=== PATIENT | female | born 1960 | race Caucasian/White ===

== ENCOUNTER 2020-02-26 12:39 | Outpatient (CLI) | payer MEDICAID, SELFPAY ==
--- NOTE | 2020-02-26 12:47 | XR_ITS ---
WS: [id number] LEFT SHOULDER: 2 VIEW(S) TECHNIQUE: Internal and external rotation. HISTORY: chronic left shoulder pain COMPARISON: None available. Mild narrowing of the AC joint. Subchondral cystic changes involving the clavicular and acromial surf aces of the AC joint. No displacement. Glenohumeral joint is normal. Visualized LEFT upper lung is clear. XR/XR shoulder LT min 2V* [id number] IMPRESSION: Mild degenerative changes at the AC joint.
== END 2020-02-26 12:40 | disposition home or self-care (01) ==
LOC: RADWPI 12:42
PROVIDERS: Family Provider Nurse Practitioner; PCP Family Medicine; Visit Provider Family Medicine
DX: M25.512 Pain in left shoulder (principal); G89.29 Other chronic pain; Z13.6 Encounter for screening for cardiovascular disorders; D50.9 Iron deficiency anemia, unspecified; G25.81 Restless legs syndrome; E03.9 Hypothyroidism, unspecified; E55.9 Vitamin D deficiency, unspecified; Z86.39 Personal history of other endocrine, nutritional and metabolic disease
CPT/HCPCS: 73030; 80053; 80061; 82306; 82728; 83550; 84443; 85025

== ENCOUNTER 2020-03-11 08:29 | Day surgery (SDC) | payer MEDICAID, SELFPAY ==
[2020-03-09 11:10] VITALS: BMI 22.8
[2020-03-11 08:38] VITALS: BP 110/71; PULSE 90; RESP 18; TEMP 36.6; O2SAT 100
[2020-03-11] MEDS: sodium chloride 0.9% 1,000 ML 30 ML IV (08:49)
--- NOTE | 2020-03-11 09:03 | W.PM.OPSFHP ---
Same Day Surgery H&P Indication for Procedure/HPI DATE OF PROCEDURE: March 11, 2020 CHIEF COMPLAINT/INDICATIONFOR SURGICAL PROCEDURE: Screening colonoscopy PREOP DIAGNOSIS: Screening colonoscopy PLANNED PROCEDRUE: Operation Date: 03/11/20 09:45 Proposed Procedures p Colonoscopy/54684 Z12.11(Not Applicable) - Thomas Snyder MD This is a pleasant 59 years old female patient well-known to me from previous clinical encounter and she did undergo a colonoscopy before 6 months but the colon prep was suboptimal patient was referred back for repeating colonoscopy for screening purposes, she denies any bleeding per rectum or colon cancer history or weight loss ROS All systems have been reviewed negative except as per the above Medications/Allergies* Home Medications Medication Instructions Recorded Confirmed Type esomeprazole magnesium 20 mg 20 mg PO DAILY PRN 10/02/19 03/11/20 History capsule,delayed release tramadol 50 mg tablet 50 mg PO TID PRN 10/02/19 03/09/20 History ropinirole 2 mg PO BID 03/09/20 03/11/20 History oxybutynin chloride 5 mg PO BEDTIME 03/11/20 03/11/20 History Allergies/Adverse Reactions Allergy/AdvReac Type Severity Reaction Status Date / Time bupropion [From Wellbutrin] Allergy dizziness Verified 03/11/20 09:04 indomethacin [From Indocin] Allergy not sure Verified 03/11/20 09:04 oxycodone [From OxyContin] Allergy ORDER DISPATCHER Verified 03/11/20 09:04 Current Medications: Generic Name Dose Route Start Last Admin Trade Name Freq PRN Reason Stop Dose Admin Sodium Chloride 1,000 mls @ 30 mls/hr 03/11/20 08:15 03/11/20 08:49 Sodium Chloride 0.9% IV 03/12/20 08:14 30 mls/hr .Q24H KARINA Administration Pertinent History/Comorbid Conditions* Medical History (Updated 02/26/20 @ 12:11 by Gaby Watts DO) Arthritis involving multiple sites Carpal tunnel syndrome Fibromyalgia Hypothyroid Raynaud disease Sleep apnea TMJ (temporomandibular joint disorder) Surgical History (Updated 10/02/19 @ 23:17 by CORI Harrison) History of appendectomy History of hysterectomy Status post reverse total arthroplasty of right shoulder Status post tendon repair Family History (Updated 02/05/20 @ 13:47 by Barb Seals LPN) Diabetes Grandfather Social History Smoking and tobacco status: never smoked Pertinent Exam Findings alert, oriented x 3, clear to auscultation bilaterally, regular rate & rhythm and procedure specific exam findings (Abdominal examination nontender nondistended soft) Recommendations Surgery/Procedure today (Screening colonoscopy and informed consent per chart 6, benefits and alternatives all discussed with the patient and she agreed to proceed) Coding Level of Care Code Acute Assistant Media Planner for Fernanda Smith
--- NOTE | 2020-03-11 09:06 | ANES.PREANE2 ---
Pre-Anesthetic Assessment Pre-Anesthetic Assessment: Height/Weight: Height 1.57 m Weight 56.699 kg Temp Pulse Resp BP Pulse Ox 97.8 F 90 18 110/71 100 03/11/20 08:38 03/11/20 08:38 03/11/20 08:38 03/11/20 08:38 03/11/20 08:38 Preop Diagnosis: Screening colonoscopy Proposed Procedure: Operation Date: 03/11/20 09:45 Proposed Procedures p Colonoscopy/99537 Z12.11(Not Applicable) - Thomas Snyder MD Was Beta Luisana taken within 24 hours: N/A Last intake: Intake Last Liquid Date 03/10/20 Last Liquid Time 23:00 Last Solid Date 03/09/20 Last Solid Time 18:00 Social: Social History: No alcohol and No tobacco Exam: Pre-Anes Outpt Exam: alert, oriented x 3, clear to auscultation bilaterally and regular rate & rhythm Airway: Submandibular: WNL Cervical ROM: WNL MP: 1 History/ROS: No significant complaints Pulmonary: Pulmonary: None reported CV/HEM: CV/HEM: None reported : : None reported Hepatic: Hepatic: None reported GI: GI: None reported Metabolic: Metabolic: Thyroid Musc/skel: Musc/skel: None reported Neuropsych: Neuropsych: Depression Anesthetic Plan: ASA status: 2 Anesthesia: MAC Meds/Allergies Current Medications: Current Medications Generic Name Dose Route Start Last Admin Trade Name Freq PRN Reason Stop Dose Admin Sodium Chloride 1,000 mls @ 30 ml s/hr 03/11/20 08:15 03/11/20 08:49 Sodium Chloride 0.9% IV 03/12/20 08:14 30 mls/hr .Q24H KARINA Administration PFSH Anesthesia PFSH: Medical History (Updated 02/26/20 @ 12:11 by Gaby Watts DO) Arthritis involving multiple sites Carpal tunnel syndrome Fibromyalgia Hypothyroid Raynaud disease Sleep apnea TMJ (temporomandibular joint disorder) Surgical History History of appendectomy History of hysterectomy Status post reverse total arthroplasty of right shoulder Status post tendon repair Family History Grandfather Diabetes Social History Smoking and tobacco status: never smoked Female Reproductive History: Para: 1 Data Anesthesia Cardiac Studies: No Data to Display
[2020-03-11 10:04] VITALS: BP 91/54; PULSE 76; RESP 16; TEMP 36.6; O2SAT 100
[2020-03-11 10:20] VITALS: BP 97/60; PULSE 69; RESP 16; TEMP 36.6; O2SAT 100
== END 2020-03-11 10:45 | disposition home or self-care (01) ==
PROVIDERS: PCP Family Medicine; Visit Provider Surgery
PROC: 0DJD8ZZ Inspection of Lower Intestinal Tract, Via Natural or Artificial Opening Endoscopic (ICD-10-PCS; CPT 45378; principal; 2020-03-11 09:45)
DX: Z12.11 Encounter for screening for malignant neoplasm of colon (principal); M19.90 Unspecified osteoarthritis, unspecified site; E03.9 Hypothyroidism, unspecified; G47.30 Sleep apnea, unspecified; Z83.3 Family history of diabetes mellitus
CPT/HCPCS: 12345; 45378; J2704; J7030

== ENCOUNTER 2020-04-16 09:29 | Outpatient (CLI) | payer MEDICAID, SELFPAY ==
--- NOTE | 2020-04-16 10:00 | FL_ITS ---
WS: [id number] BARIUM ENEMA SINGLE CONTRAST. HISTORY: Z12.11 Encounter for screening for malignant neoplasm COMPARISON: None available. FLUOROSCOPY TIME: 2.7 minutes. Good distention of the colon with contrast. Marked tortuosity and overlapping loops of colon. There i s retained fecal material in the more proximal colon. No persistent filling defects. Several of the l oops are overlapping and tortuous but no strictures or mucosal narrowing identified. No significant d iverticular disease. The appendix did not fill consistent with history of appendectomy. FL/FL barium enema [id number] IMPRESSION: 1. No strictures or persistent mass. 2. Markedly tortuous colon with overlapping loops. 3. No evidence for diverticulosis.
== END 2020-04-16 09:30 | disposition home or self-care (01) ==
LOC: RAD 09:31
PROVIDERS: PCP Family Medicine; Visit Provider Surgery
DX: Z12.11 Encounter for screening for malignant neoplasm of colon (principal)
CPT/HCPCS: 74270

== ENCOUNTER 2020-04-29 11:22 | Outpatient (CLI) | payer MEDICAID, SELFPAY ==
--- NOTE | 2020-04-29 11:30 | MM_ITS ---
WS: [id number] SCREENING DIGITAL MAMMOGRAM WITH CAD HISTORY: screening mammogram COMPARISON: 04/02/2019 and 02/26/2018 Bilateral CC and MLO views submitted. Computer aided detection analyzed. Breast composition: There are scattered areas of fibroglandular density. No suspicious masses, microc alcifications or architectural distortion. MM/[place] [id number] IMPRESSION: BI-RADS: 1-Negative FOLLOW UP: 1 Year Follow-up
== END 2020-04-29 11:23 | disposition home or self-care (01) ==
LOC: RADSHAW 11:25
PROVIDERS: PCP Family Medicine; Visit Provider Family Medicine
DX: Z12.31 Encounter for screening mammogram for malignant neoplasm of breast (principal)
CPT/HCPCS: 77067

== ENCOUNTER → 2020-06-05 12:35 | Outpatient (BNVA) | payer MEDICAID, SELFPAY | PROVIDERS: PCP Family Medicine; Visit Provider Surgery | DX: Z11.59 Encounter for screening for other viral diseases (principal) | CPT/HCPCS: 87635 ==

== ENCOUNTER 2020-06-09 08:25 | Day surgery (SDC) | payer MEDICAID, SELFPAY ==
[2020-06-08 16:57] VITALS: BMI 21.9
[2020-06-09] MEDS: sodium chloride 0.9% 1,000 ML 30 ML IV (08:57)
[2020-06-09 09:02] VITALS: BP 115/61; PULSE 101; RESP 18; TEMP 36.6; O2SAT 96
--- NOTE | 2020-06-09 09:02 | P.ANESASSM_ITS ---
Pre-Anesthetic Assessment Pre-Anesthetic Assessment: Height/Weight: Height 1.57 m Weight 54.431 kg Preop Diagnosis: Tender left breast scar Proposed Procedure: Operation Date: 06/09/20 09:55 Proposed Procedures p Excision of left breast scar 38571 L90.5(Left) - Thomas Membreno MD Familial anesthetic complications: PONV Was Beta Luisana taken within 24 hours: N/A Last intake: Intake Last Liquid Date 06/08/20 Last Liquid Time 21:00 Last Solid Date 06/08/20 Last Solid Time 19:00 Social: Social History: No alcohol and No tobacco Exam: Pre-Anes Outpt Exam: alert, oriented x 3, clear to auscultation bilaterally and regular rate & rhythm Airway: Cervical ROM: WNL MP: 1 Dentition: Full GI: GI: GERD Metabolic: Metabolic: Thyroid Musc/skel: Musc/skel: OA/DJD Anesthetic Plan: ASA status: 2 Anesthesia: General Risk of > 500 ml blood loss (7ml/kg in children): No Meds/Allergies Current Medications: Current Medications Generic Name Dose Route Start Last Admin Trade Name Freq PRN Reason Stop Dose Admin Sodium Chloride 1,000 mls @ 30 ml s/hr 06/09/20 08:45 06/09/20 08:57 Sodium Chloride 0.9% IV 06/10/20 08:44 30 mls/hr .Q24H KARINA Administration PFSH Anesthesia PFSH: Medical History (Updated 05/25/20 @ 14:49 by Thomas Membreno MD) Arthritis involving multiple sites Carpal tunnel syndrome Fibromyalgia Hypothyroid Raynaud disease Sleep apnea TMJ (temporomandibular joint disorder) Surgical History History of appendectomy History of colonoscopy with polypectomy (~02/2020) dr. [email or web address] [place] History of hysterectomy Status post reverse total arthroplasty of right shoulder Status post tendon repair Family History Grandfather Diabetes Social History Smoking and tobacco status: never smoked Female Reproductive History: Para: 1 Data Anesthesia Cardiac Studies: No Data to Display
--- NOTE | 2020-06-09 09:49 | W.PM.OPSUD ---
Surgery/Procedure H&P Update DATE OF PROCEDURE: June 09, 2020 DATE H&P PERFORMED: 05/25/20 H&P UPDATE INFORMATION: I have reviewed H&P completed within last 30 days, I have examined patient prior to procedure and No changes to prior documentation PREOP DIAGNOSIS: Tender left breast scar PRIMARY INDICATION FOR PROCEDURE: The same PLANNED PROCEDURE: Operation Date: 06/09/20 09:55 Proposed Procedures p Excision of left breast scar 31964 L90.5(Left) - Thomas Snyder MD
[2020-06-09] MEDS: lidocaine 2% INJ 20 mL INJECTION (10:16)
--- NOTE | 2020-06-09 10:55 | P.OP_ITS ---
Operative Report Date of procedure: June 09, 2020 Pre-op Diagnosis: Tender left breast scar Post-op diagnosis: same Post-op Findings: Measurement of the scar 3 x 1 x 0.2 cm Procedure Done: Excision of left breast scar and revision of the scar was done Specimens removed/disposition: Left breast scar short sutures marked superior and long sutures marked lateral Surgeon: Thomas Snyder Coil Rewind Machine Operator: educational technology specialist [place] and medical student Pratima Anesthesia: MAC (JEROME Johnson) Estimated blood loss (mL): 5 Condition: stable Disposition: same day Brief History: This is a pleasant 59 years old female patient with previous history of excision of left breast mass developed over time tender scar. It was seen and evaluated by myself and a screening mammography was done that showed normal findings followed by that I did career technical counselor the patient for excision and revision of the scar. Patient agreed to proceed. Informed consent per chart Procedure: After identifying the patient holding area, the left breast was marked before the procedure by myself in the presence of female nurse utilization review nurse, patient was then taken to the operative suite, was placed in right lateral position where all pressure points were padded, IV propofol was infused by anesthesia, prophylactic IV antibiotics were given per protocol, both arms were tucked, prep and drape of the left pectoralis region was done under the usual sterile technique. Timeout was done verifying the patient's name/date of /planned procedure and destination after the procedure, all were in agreement. After palpation of the scar I did add elliptical incision on top of the scar with appropriate normal tissue margin, I was able to dissect using the Bovie cautery at good margin of normal breast tissue surrounding the scar, and appropriate orientation was done for the left breast scar in the form of, short superior sutures, long left lateral sutures, and the specimen was taken out and passed to the circulating nurse for permanent pathology Thorough irrigation of the cavity was done and hemostasis, the scar was all e xcised normal tissues were available for closure, started by deep dermal closure by 2-0 Vicryl followed by 4-0 Vicryl, then 4-0 Monocryl for skin closure Lidocaine 2% was injected at the site of the incision, Mastisol and Steri-Strips were applied followed by dry dressing in the form of fluffs and sports bra. Patient tolerated the procedure well, count of instruments,needle and sponges were completed at the end of the procedure.And then patient was transferred to the recovery area in stable condition. I Was present for the whole entire procedure
[2020-06-09 11:00] VITALS: BP 146/87; PULSE 72; RESP 18; TEMP 36.8; O2SAT 99
[2020-06-09 11:18] VITALS: BP 144/88; RESP 18; O2SAT 100
--- NOTE | 2020-06-09 11:40 | ANE.PACU2 ---
Inpatient post-anesthesia follow up: Airway intact: Yes Vital signs: Temperature 98.2 F Pulse Rate 72 Respiratory Rate 18 Blood Pressure 144/88 Pulse Oximetry 100 Oxygen Delivery Me thod Room Air Oxygen Flow Rate Fraction of Inspir ed Oxygen Hydration adequate: Yes Nausea and vomiting: No Pain level: 1 Mental status: Baseline
== END 2020-06-09 11:42 | disposition home or self-care (01) ==
PROVIDERS: PCP Family Medicine; Visit Provider Surgery
PROC: (CPT 11403; principal; 2020-06-09 09:45)
DX: L90.5 Scar conditions and fibrosis of skin (principal); K21.9 Gastro-esophageal reflux disease without esophagitis; M19.90 Unspecified osteoarthritis, unspecified site; M79.7 Fibromyalgia; G47.30 Sleep apnea, unspecified
CPT/HCPCS: 11403; 12032; 12345; 88304; J0131; J0690; J2250; J2704; J3010; J7030

== ENCOUNTER → 2020-10-20 10:33 | Outpatient (BNVA) | payer OTHER, SELFPAY | PROVIDERS: PCP Family Medicine; Visit Provider Family Medicine | DX: M79.7 Fibromyalgia (principal); G25.81 Restless legs syndrome; E03.9 Hypothyroidism, unspecified; R51.9 Headache, unspecified | CPT/HCPCS: 80053; 84443 ==

== ENCOUNTER → 2021-02-25 08:28 | Outpatient (BNVA) | payer OTHER, SELFPAY | PROVIDERS: PCP Family Medicine; Referring Provider Family Medicine; Visit Provider Specialist | DX: G43.711 Chronic migraine without aura, intractable, with status migrainosus (principal); M79.7 Fibromyalgia; Z71.89 Other specified counseling | CPT/HCPCS: 99204 ==

== ENCOUNTER 2021-02-25 09:42 | Outpatient (CLI) | payer OTHER, SELFPAY ==
[2021-02-25 11:04] LABS: Erythrocyte Sedimentation Rate 23 mm/hr (0-15)
== END 2021-02-25 09:43 | disposition home or self-care (01) ==
LOC: LAB 09:45
PROVIDERS: PCP Family Medicine; Visit Provider Specialist
DX: R51.9 Headache, unspecified (principal)
CPT/HCPCS: 36415; 85651

== ENCOUNTER 2021-06-04 13:04 | Outpatient (CLI) | payer OTHER, SELFPAY ==
--- NOTE | 2021-06-04 13:15 | MM_ITS ---
WS: [id number] BILATERAL DIGITAL SCREENING MAMMOGRAPHY WITH CAD CLINICAL INFORMATION: SCREENING HISTORY: Screening mammogram. No current complaints. COMPARISON: April 29, 2020 TECHNIQUE: Bilateral CC and MLO views. FINDINGS: Scattered fibroglandular densities bilaterally. No suspicious focal mass, asymmetry, calcifications, or architectural distortion. No evidence of malignancy. Punctate calcification right breast MM/[place] [id number] IMPRESSION: BI-RADS: 2-Benign FOLLOW UP: 1 Year Follow-up Recommend return to annual screening mammography.
== END 2021-06-04 13:05 | disposition home or self-care (01) ==
LOC: RADSHAW 13:08
PROVIDERS: PCP Family Medicine; Visit Provider Family Medicine
DX: Z12.31 Encounter for screening mammogram for malignant neoplasm of breast (principal)
CPT/HCPCS: 77067

== ENCOUNTER → 2021-06-07 09:35 | Outpatient (BNVA) | payer OTHER, SELFPAY | PROVIDERS: PCP Family Medicine; Visit Provider Specialist | DX: G43.809 Other migraine, not intractable, without status migrainosus (principal) | CPT/HCPCS: 99213 ==

== ENCOUNTER → 2021-07-02 10:48 | Outpatient (BNVA) | payer OTHER, SELFPAY | PROVIDERS: PCP Family Medicine; Visit Provider Family Medicine | DX: E03.9 Hypothyroidism, unspecified (principal); Z13.6 Encounter for screening for cardiovascular disorders | CPT/HCPCS: 80053; 80061; 84443; 85025 ==

== ENCOUNTER → 2021-10-13 13:37 | Outpatient (BNVA) | payer OTHER, SELFPAY | PROVIDERS: PCP Family Medicine; Visit Provider Podiatrist Foot & Ankle Surgery | DX: Z47.89 Encounter for other orthopedic aftercare (principal) | CPT/HCPCS: 73630 ==

== ENCOUNTER → 2021-10-29 11:18 | Outpatient (BNVA) | payer OTHER, SELFPAY | PROVIDERS: PCP Family Medicine; Visit Provider Family Medicine | DX: I73.00 Raynaud's syndrome without gangrene (principal); L03.031 Cellulitis of right toe | CPT/HCPCS: 87070; 87075; 87205 ==

== ENCOUNTER 2021-11-30 12:15 | Outpatient (CLI) | payer OTHER, SELFPAY ==
--- NOTE | 2021-11-30 12:30 | CT_ITS ---
WS: [id number] CT ANGIOGRAPHY OF THE ABDOMINAL AORTA WITH RUNOFF TO THE ANKLES HISTORY: Wounds on second and third toes of right foot TECHNIQUE: Arterial injection is performed during imaging to evaluate the aorta and runoff vessels to the ankles. MIP and volume rendering imaging has also been performed. All images are reviewed. All C T scans at [facility] use at least one of these dose optimization techniques: automated exposu re control; mA and/or kV adjustment per patient size (includes targeted exams where dose is matched t o clinical indication); or iterative reconstruction. Contrast: Omnipaque 350; 95 mL IV. DLP: 1458.11 mGy.cm COMPARISON: None available. Lung bases are clear. Heart size is normal. No hiatal hernia. Abdominal aorta: Normal abdominal aorta. No plaque or stenosis. Celiac axis, SMA, and renal arteries are normal. The inferior mesenteric artery is patent. RIGHT lower extremity arterial system: Common iliac, internal and external iliac arteries are patent. Common femoral artery, SFA and deep profunda are normal. No stenosis or occlusion. Normal popliteal artery. Normal caliber three-vessel runoff to the ankles. LEFT lower extremity arterial system: Common iliac artery, internal and external iliac arteries are p atent. Common femoral, SFA and deep profunda are normal caliber. No occlusion or thrombus. Popliteal artery is normal. Normal three-vessel runoff to the ankle. Early arterial enhancement through the organs of the upper abdomen demonstrates no abnormality. Liver , gallbladder, spleen, pancreas, adrenals and kidneys are negative. No GI tract obstruction. No adeno maya or ascites. No acute inflammatory processes in the abdomen or pelvis. Status post hysterectomy and appendectomy. Increase in lumbar lordosis. CT/CT angio abd aorta runof [id number] IMPRESSION: 1. Unremarkable abdominal aorta and runoff to the ankles. No occlusions or sig nificant atherosclerotic plaque identified. No dissection or aneurysm. 2. Status post hysterectomy and appendectomy.
[2021-11-30 13:23] LABS: Blood Urea Nitrogen 17 mg/dL (8-23)
[2021-11-30] MEDS: iohexol 350 mg/mL 100 mL Btl IV (13:24)
== END 2021-11-30 12:16 | disposition home or self-care (01) ==
PROVIDERS: PCP Family Medicine; Visit Provider Podiatrist Foot & Ankle Surgery
DX: I73.9 Peripheral vascular disease, unspecified (principal); Z90.710 Acquired absence of both cervix and uterus; Q42.8 Congenital absence, atresia and stenosis of other parts of large intestine
CPT/HCPCS: 75635; 82565; 84520

== ENCOUNTER 2022-06-09 11:46 | Outpatient (CLI) | payer OTHER, SELFPAY ==
--- NOTE | 2022-06-09 12:02 | MM_ITS ---
WS: [id number] SCREENING DIGITAL BREAST TOMOSYNTHESIS MAMMOGRAM WITH CAD HISTORY: SCREEN COMPARISON: 06/04/2021 and 04/29/2020 Bilateral CC and MLO with tomosynthesis and synthetic mammography submitted. Computer aided detection analyzed. Breast composition: There are scattered areas of fibroglandular density. Seen only on the LEFT CC pro jections increased density measuring about 5 mm posterior to the nipple. This is just inferior to the nipple line. No corresponding abnormality on the lateral projection. Negative RIGHT breast. Benign RIGHT breast calcification. MM/[place] [id number] IMPRESSION: BI-RADS: 0-Incomplete: Need additional imaging evaluation FOLLOW UP: Need Additional Imaging LEFT breast: Spot compression views (CC and MLO). True ML. Ultrasound to follo w if abnormality persists.
== END 2022-06-09 11:47 | disposition home or self-care (01) ==
LOC: RAD 11:47
PROVIDERS: PCP Family Medicine; Visit Provider Family Medicine
DX: Z12.31 Encounter for screening mammogram for malignant neoplasm of breast (principal)
CPT/HCPCS: 77063; 77067

== ENCOUNTER → 2022-07-01 10:37 | Outpatient (BNVA) | payer OTHER, SELFPAY | PROVIDERS: PCP Family Medicine; Visit Provider Family Medicine | DX: Z13.6 Encounter for screening for cardiovascular disorders (principal); E03.9 Hypothyroidism, unspecified; M79.7 Fibromyalgia; I73.00 Raynaud's syndrome without gangrene | CPT/HCPCS: 80053; 80061; 84443; 85025 ==

== ENCOUNTER 2022-07-04 13:47 | Outpatient (CLI) | payer OTHER, SELFPAY ==
--- NOTE | 2022-07-04 14:16 | MM_ITS ---
WS: [id number] Left breast diagnostic 3D tomosynthesis digital mammogram, 07/04/2022 Clinical Data: ABNORMAL MAMMOGRAM Comparison: 06/09/2022, 06/04/2021, 03/29/2020, 04/02/2019, 02/26/2018, 05/20/2013. Findings: The left breast shows no spiculated masses or clustered calcifications. There are no secondary signs of carcinoma. The breast parenchymal pattern shows fat replacement. There are mole markers on the lef t breast. Impression: 1. Negative left breast mammogram. 2. Recommend return to annual screening mammograms. MM/[place] [id number] BIRADS: 1-Negative FOLLOW UP: 1 Year Follow-up The CAD raspberry checker was used.
== END 2022-07-04 13:48 | disposition home or self-care (01) ==
PROVIDERS: PCP Family Medicine; Visit Provider Family Medicine
DX: R92.8 Other abnormal and inconclusive findings on diagnostic imaging of breast (principal)
CPT/HCPCS: 77061

== ENCOUNTER → 2022-12-30 10:44 | Outpatient (BNVA) | payer OTHER, SELFPAY | PROVIDERS: PCP Family Medicine; Visit Provider Family Medicine | DX: G25.0 Essential tremor (principal); M79.7 Fibromyalgia; E03.9 Hypothyroidism, unspecified | CPT/HCPCS: 84443 ==

== ENCOUNTER → 2023-04-28 12:21 | Outpatient (BNVA) | payer OTHER, SELFPAY | PROVIDERS: PCP Family Medicine; Visit Provider Family Medicine | DX: E89.41 Symptomatic postprocedural ovarian failure (principal); G25.81 Restless legs syndrome; E03.9 Hypothyroidism, unspecified; M79.641 Pain in right hand; Z13.6 Encounter for screening for cardiovascular disorders | CPT/HCPCS: 80053; 85025; 85651; 86038; 86140; 86200; 86431 ==

== ENCOUNTER 2023-06-28 11:42 | Outpatient (CLI) | payer MEDICARE, OTHER, SELFPAY ==
--- NOTE | 2023-06-28 11:53 | XRR_ITS ---
PROCEDURE INFORMATION: Exam: XR Right Hand Exam date and time: 06/28/2023 12:04 PM Age: 62 years old Clinical indication: Pain; Hand; Right; Additional info: Right index mcp pain and swelling TECHNIQUE: Imaging protocol: Radiologic exam of the right hand. Views: 3 or more views. COMPARISON: No relevant prior studies available. FINDINGS: Bones/joints: Osseous structures are intact. No fracture or malalignment. Visualized joint surfaces are preserved. Soft tissues: Unremarkable. XR/XR hand RT min 3V* [id number] IMPRESSION: Negative exam. No acute bony abnormalities.
== END 2023-06-28 11:43 | disposition home or self-care (01) ==
LOC: RAD 11:47
PROVIDERS: PCP Family Medicine; Visit Provider Family Medicine
DX: M79.641 Pain in right hand (principal)
CPT/HCPCS: 73130

== ENCOUNTER 2023-07-18 10:45 | Outpatient (CLI) | payer MEDICARE, OTHER, SELFPAY ==
--- NOTE | 2023-07-18 10:48 | MM_ITS ---
WS: [id number] BILATERAL 3D TOMOSYNTHESIS DIGITAL SCREENING MAMMOGRAPHY WITH CAD CLINICAL INFORMATION: SCREENING HISTORY: Screening mammogram. No current complaints. COMPARISON: 2021 TECHNIQUE: Bilateral CC and MLO views. FINDINGS: Scattered fibroglandular densities bilaterally. No suspicious focal mass, asymmetry, calcifications, or architectural distortion. No evidence of malignancy. A few incidental calcifications. IMPRESSION: MM/[place] [id number] BI-RADS: 2-Benign FOLLOW UP: 1 Year Follow-up Recommend return to annual screening mammography.
== END 2023-07-18 10:46 | disposition home or self-care (01) ==
LOC: RAD 10:45
PROVIDERS: PCP Family Medicine; Visit Provider Family Medicine
DX: Z12.31 Encounter for screening mammogram for malignant neoplasm of breast (principal)
CPT/HCPCS: 77063; 77067

== ENCOUNTER → 2023-09-28 14:18 | Outpatient (BNVA) | payer MEDICARE, OTHER, SELFPAY | PROVIDERS: PCP Family Medicine; Visit Provider Family Medicine | DX: I73.00 Raynaud's syndrome without gangrene (principal); M25.511 Pain in right shoulder; G89.29 Other chronic pain; Z13.6 Encounter for screening for cardiovascular disorders; Z79.899 Other long term (current) drug therapy | CPT/HCPCS: 80061 ==

== ENCOUNTER → 2023-11-21 09:28 | Outpatient (BNVA) | payer MEDICARE, OTHER, SELFPAY | PROVIDERS: PCP Family Medicine; Referring Provider Family Medicine; Visit Provider Student in an Organized Health Care Education/Training Program | DX: M25.511 Pain in right shoulder (principal); G89.29 Other chronic pain; M19.012 Primary osteoarthritis, left shoulder; M75.42 Impingement syndrome of left shoulder; Z96.611 Presence of right artificial shoulder joint | CPT/HCPCS: 20610; 73030; 99204; J3301 ==

== ENCOUNTER → 2024-01-16 14:30 | Outpatient (BNVA) | payer MEDICARE, OTHER, SELFPAY | PROVIDERS: PCP Family Medicine; Visit Provider Family Medicine | DX: B35.1 Tinea unguium (principal); R68.82 Decreased libido; Z79.899 Other long term (current) drug therapy | CPT/HCPCS: 80053 ==

== ENCOUNTER → 2024-02-27 09:42 | Outpatient (BNVA) | payer MEDICARE, OTHER, SELFPAY | PROVIDERS: PCP Family Medicine; Visit Provider Student in an Organized Health Care Education/Training Program | DX: M75.42 Impingement syndrome of left shoulder (principal) | CPT/HCPCS: 20610; 99213 ==

== ENCOUNTER → 2024-04-17 11:25 | Outpatient (BNVA) | payer MEDICARE, OTHER, SELFPAY | PROVIDERS: PCP Family Medicine; Visit Provider Family Medicine | DX: E03.9 Hypothyroidism, unspecified (principal) | CPT/HCPCS: 80053; 84439; 84443; 85025 ==

== ENCOUNTER → 2024-06-28 09:47 | Outpatient (BNVA) | payer MEDICARE, OTHER, SELFPAY | PROVIDERS: PCP Family Medicine; Visit Provider Student in an Organized Health Care Education/Training Program | DX: M75.42 Impingement syndrome of left shoulder (principal) | CPT/HCPCS: 20610; 99213; J3301 ==

== ENCOUNTER 2024-07-24 09:50 | Outpatient (CLI) | payer MEDICARE, OTHER, SELFPAY ==
--- NOTE | 2024-07-24 09:55 | MM_ITS ---
WS: [id number] BILATERAL 3D TOMOSYNTHESIS DIGITAL SCREENING MAMMOGRAPHY WITH CAD CLINICAL INFORMATION: SCREENING HISTORY: Screening mammogram. No current complaints. COMPARISON: 2022 TECHNIQUE: Bilateral CC and MLO views. FINDINGS: Scattered fibroglandular densities bilaterally. No suspicious focal mass, asymmetry, calcifications, or architectural distortion. No evidence of malignancy. Benign calcification RIGHT breast. MM/MM scr tomosynthesis [id number] IMPRESSION: DENSITY: There are scattered areas of fibroglandular density. BI-RADS: 2 - Benign. FOLLOW UP: 1 Year Follow-up Recommend return to annual screening mammography.
== END 2024-07-24 09:51 | disposition home or self-care (01) ==
LOC: RAD 09:51
PROVIDERS: PCP Family Medicine; Visit Provider Family Medicine
DX: Z12.31 Encounter for screening mammogram for malignant neoplasm of breast (principal); R92.323 Mammographic fibroglandular density, bilateral breasts; R92.1 Mammographic calcification found on diagnostic imaging of breast
CPT/HCPCS: 77063; 77067

== ENCOUNTER → 2024-08-06 12:51 | Outpatient (BNVA) | payer MEDICARE, OTHER, SELFPAY | PROVIDERS: PCP Family Medicine; Visit Provider Student in an Organized Health Care Education/Training Program | DX: M75.42 Impingement syndrome of left shoulder (principal); M19.012 Primary osteoarthritis, left shoulder | CPT/HCPCS: 99213 ==

== ENCOUNTER 2024-08-08 07:52 | Outpatient (CLI) | payer MEDICARE, OTHER, SELFPAY ==
--- NOTE | 2024-08-08 08:00 | MR_ITS ---
WS: [id number] MRI LEFT SHOULDER NONCONTRAST TECHNIQUE: Sagittal T2, coronal T1, T2 and proton density imaging. Axial gradient PDE imaging. CLINICAL INFORMATION: left shoulder pain/injury/rotator cuff tear COMPARISON: None. FINDINGS: Some images degraded by susceptibility artifact. Moderate degenerative arthritis AC joint with complete loss of the subacromial space. Subacromial and subdeltoid fluid. Edema within the supraspinatus and infraspinatus muscle bellies. Atrophy of the in fraspinatus. Chronic thinning of the supraspinatus tendon with acromial impingement. Tendinopathy sup raspinatus. Chronic appearing high-grade tearing of the infraspinatus with retraction to the level of the glenohumeral joint. Visualized tendon laxity. Teres minor appears intact. Subscapularis tendon appears intact. Biceps tendon appears intact within the bicipital groove. Intra-articular biceps tendon appears intact. Advanced degenerative narrowing o f the glenohumeral articulation. Glenoid labrum appears grossly intact. Concavity along the anterior medial humeral head may be due to prior posterior dislocation. This has a chronic appearance. MR/MR shoulder LT wo con* [id number] IMPRESSION: 1. Advanced arthritis AC joint with near complete loss of the subacromial spac e. 2. High-grade complete tear of the infraspinatus with retraction to the level of the glenohumeral joint. Edema with atrophy of the infraspinatus muscle belly . 3. Chronic high-grade thinning of the supraspinatus tendon. Small amount of rodriguez praspinatus tendon distally appears intact. 4. Subscapularis and teres minor appear intact. 5. Biceps tendon appears intact within the bicipital groove. Intra-articular b iceps tendon appears intact. 6. Concave chronic impaction deformity along the anterior medial humeral head may be due to prior posterior dislocation. No evidence of edema. 7. No other acute findings.
== END 2024-08-08 07:53 | disposition home or self-care (01) ==
PROVIDERS: PCP Family Medicine; Visit Provider Student in an Organized Health Care Education/Training Program
DX: M19.012 Primary osteoarthritis, left shoulder (principal); M75.42 Impingement syndrome of left shoulder; M75.122 Complete rotator cuff tear or rupture of left shoulder, not specified as traumatic; M21.212 Flexion deformity, left shoulder
CPT/HCPCS: 73221

== ENCOUNTER → 2024-09-12 14:45 | Outpatient (BNVA) | payer MEDICARE, OTHER, SELFPAY | PROVIDERS: PCP Family Medicine; Visit Provider Student in an Organized Health Care Education/Training Program | DX: M75.42 Impingement syndrome of left shoulder (principal); M75.102 Unspecified rotator cuff tear or rupture of left shoulder, not specified as traumatic; M19.012 Primary osteoarthritis, left shoulder; M75.22 Bicipital tendinitis, left shoulder | CPT/HCPCS: 99214 ==

== ENCOUNTER 2024-10-03 06:18 | Day surgery (SDC) | payer MEDICARE, OTHER, SELFPAY ==
[2024-10-03] VITALS (11 sets, daily range): BP systolic 91–117; BP diastolic 54–70; PULSE 62–83; RESP 13–17; TEMP 36.1–36.8; O2SAT 94–100; BMI 19.7
[2024-10-03] MEDS: sodium chloride 0.9% 1,000 ML 30 ML IV (07:03)
[2024-10-03] MEDS: ketorolac 30 mg/mL INJ IVP (07:04)
[2024-10-03] MEDS: scopolamine 1 mg PATCH 1 PATCH TRANSDERMA (07:04)
--- NOTE | 2024-10-03 07:06 | W.PM.OPSUD ---
Surgery/Procedure H&P Update DATE OF PROCEDURE: October 03, 2024 DATE H&P PERFORMED: 09/12/24 H&P UPDATE INFORMATION: I have reviewed H&P completed within last 30 days, I have examined patient prior to procedure and No changes to prior documentation PREOP DIAGNOSIS: Left shoulder AC joint arthritis, subacromial impingement, rotator cuff tea PRIMARY INDICATION FOR PROCEDURE: Left shoulder AC joint arthritis, subacromial impingement, rotator cuff tear, biceps tendinitis PLANNED PROCEDURE: Operation Date: 10/03/24 08:00 Proposed Procedures p Shoulder Arthroscopy(Left) - DO mynor Lou Subacromial Decompression(Left) - DO mynor Lou AC Joint Resection(Left) - DO mynor Lou Rotator Cuff Repair debridement vs repair(Left) - DO mynor Lou Bicep Tenotomy vs Tenodesis(Left) - DO mynor Lou Subacromial Ballon Spacer(Left) - Deejay Bailey DO
--- NOTE | 2024-10-03 07:28 | ANES.PREANE2 ---
Pre-Anesthetic Assessment Height/Weight: Height 1.57 m Weight 48.988 kg Temp Pulse Resp BP Pulse Ox O2 Del Method 98.3 F 83 17 97/54 97 Room Air 10/03/24 06:33 10/03/24 06:33 10/03/24 06:33 10/03/24 06:33 10/03/24 06:33 10/03/24 06:35 Preop Diagnosis: Left shoulder AC joint arthritis, subacromial impingement, rotator cuff tea Operation Date: 10/03/24 08:00 Proposed Procedures p Shoulder Arthroscopy(Left) - Deejay Lynn, DO s Subacromial Decompression(Left) - Deejay Lynn, DO s AC Joint Resection(Left) - Deejay Hall, DO s Rotator Cuff Repair debridement vs repair(Left) - Deejay Hall, DO s Bicep Tenotomy vs Tenodesis(Left) - Deejay Lynn, DO s Subacromial Ballon Spacer(Left) - Deejay Lynn, DO Familial anesthetic complications: None Was Beta Luisana taken within 24 hours: N/A Was Clonidine taken within 24 hours: N/A Last intake: Intake Last Liquid Date 10/02/24 Last Liquid Time 23:00 Last Solid Date 10/02/24 Last Solid Time 21:00 Social No alcohol and No tobacco Exam alert, oriented x 3, clear to auscultation bilaterally and regular rate & rhythm Airway Mallampati: Class I CV/HEM Low baseline BP (systolics 90s are normal for her) Metabolic Thyroid Disease [facility] [place]/skel Fibromyalgia Anesthetic Plan ASA status: 2 Anesthesia: General and Regional (specify below) Risk of > 500 ml blood loss (7ml/kg in children): No Medications/Allergies Home Medications ?Medication ?Instructions ?Recorded ?Confirmed ?Last Taken ?Type ropinirole 4 mg tablet 4 mg PO BID #180 tabs 07/15/24 10/02/24 10/02/24 Rx meloxicam 15 mg tablet 15 mg PO DAILY #30 tabs 07/26/24 10/02/24 09/26/24 Rx pentoxifylline 400 mg 400 mg PO TID #270 tabs 08/02/24 10/02/24 10/02/24 Rx tablet,extended release nifedipine 30 mg tablet,extended 30 mg PO DAILY #90 tabs 09/12/24 10/02/24 10/02/24 Rx release diclofenac sodium 1 % topical gel 4 g topical QID PRN Pain 10/02/24 10/02/24 Unknown History (Voltaren Arthritis Pain) esomeprazole magnesium 20 mg 20 mg PO DAILY PRN Heartburn 10/02/24 10/02/24 Unknown History capsule,delayed release estradiol 1 mg tablet 1 mg PO DAILY 10/02/24 10/02/24 10/02/24 History fluoxetine 40 mg capsule 40 mg PO DAILY 10/02/24 10/02/24 10/02/24 History levothyroxine 75 mcg tablet 75 mcg PO DAILY 10/02/24 10/03/24 10/03/24 05:30 History oxybutynin chloride 5 mg 5 mg PO BEDTIME 10/02/24 10/02/24 10/01/24 History tablet,extended release 24 hr primidone 50 mg tablet 50 mg PO DAILY 10/02/24 10/02/24 10/02/24 History sumatriptan succinate 100 mg See Rx Instructions PO .COMPLEX 10/02/24 10/02/24 Unknown History tablet (Imitrex) PRN migraine h/a Allergies Allergy/AdvReac Type Severity Reaction Status Date / Time sulfamethoxazole (From Allergy Intermediate ADR-Headach Verified 10/03/24 06:30 Bactrim) e trimethoprim (From Bactrim) Allergy Intermediate ADR-Headach Verified 10/03/24 06:30 e bupropion (From Wellbutrin) Allergy dizziness Verified 10/03/24 06:30 indomethacin (From Indocin) Allergy not sure Verified 10/03/24 06:30 oxycodone (From OxyContin) Allergy MARKET DEVELOPMENT MANAGER Verified 10/03/24 06:30 Current Medications Generic Name Dose Route Start Last Admin Trade Name Freq PRN Reason Stop Dose Admin Sodium Chloride 1,000 mls @ 30 mls/hr 10/03/24 06:30 10/03/24 07:03 Sodium Chloride 0.9% IV 10/04/24 06:29 30 mls/hr .Q24H KARINA Administration PFSH Anesthesia Medical History Moderate major depression Encounter for monitoring estrogen replacement therapy following surgical menopause Osteoarthritis COVID-19 Tender scar Radial scar of left breast Fibromyalgia Arthritis involving multiple sites Raynaud disease Carpal tunnel syndrome Sleep apnea TMJ (temporomandibular joint disorder) Hypothyroid Surgical History History of colonoscopy with polypectomy (~02/2020) [email or web address] Status post reverse total arthroplasty of right shoulder History of hysterectomy 1997 History of appendectomy Status post tendon repair Family History Grandfather Diabetes Social History Smoking and tobacco/nicotine status: never used tobacco/nicotine Alcohol intake: never Substance/Drug Use: never Female Reproductive History Para: 1 Data Anesthesia Cardiac Studies: No Data to Display
--- NOTE | 2024-10-03 07:29 | ANES.PROC ---
Anesthesia Procedures Procedure/Date: 10/03/24 Nerve Block ^: Nerve Block 1: Main Anesthesia: general anesthesia Time Out Performed: Yes Consent: requested by attending/covering physician, from patient, from other, risks and benefits reviewed and patient agrees to proceed Nerve block location: interscalene (L) Anesthesia monitors applied: pulse oximetry, EKG, BP cuff and oxygen Nerve block position: semi sitting Anesthetic Used: ropivicaine 0.5% (15 ml) and with decadron (4 mg) Ultrasound used to: recognize landmarks, visualize and ID brachial plexus, in supraclavicular region and visualize and ID interscalene groove Nerve Stimulator Used?: No Interscalene/Femoral BLK: 2 stimuplex 22 g needle used for position and inplane approach, visualize local anesthetic spread and no vascular puncture identified Injection: neg aspiration of heme Patient Tolerated Procedure: well Complications: none
[2024-10-03] MEDS: ceFAZolin 2,000 MG in sodium chloride 0.9% (plus) 50 ML 100 MG IV (07:45)
[2024-10-03] MEDS: EPINEPHrine 1 mg/mL INJ 2 MG XX (08:40)
--- NOTE | 2024-10-03 10:09 | P.BOP_ITS ---
Date of Procedure: [October 03, 2024] Surgeon: [Dr. Bailey DO] Gelatin Powder Mixer(s): [Daniel higgins PA-C] Procedure(s) performed: [Left shoulder diagnostic and surgical arthroscopy Biceps tenodesis Large rotator cuff repair Labral debridement Subacromial decompression AC joint resection Subacromial balloon spacer] Findings of the procedure(s): [Left shoulder biceps tendon tear and large rotator cuff tear. Subacromial bursitis and AC joint arthritis. Small labral tearing and fraying. procedure went well and as planned.] Estimated blood loss: [10 mL] Specimen(s) removed: [N/A] Post-operative diagnosis: [Left shoulder biceps tendon tear and large rotator cuff tear. Subacromial bursitis and AC joint arthritis. Small labral tearing and fraying.]
--- NOTE | 2024-10-03 10:10 | PM.OP ---
Operative Report Date of procedure: October 03, 2024 Surgeon: Deejay Bailey DO Employment Attorney: Daniel Bailey PA-C: PA was necessary for assistance in this case with shoulder positioning to execute the procedure, assistance with instrumentation, as well as implant fixation when necessary, Assistance with subacromial balloon spacer, assistance with wound closure and dressing application. Procedure: Preoperative diagnosis: Left shoulder AC joint arthritis, subacromial impingement, rotator cuff tear, biceps tendinitis Post-op diagnosis:? Left shoulder biceps tendon tear and large to massive rotator cuff tear. Subacromial bursitis and AC joint arthritis. Small labral tearing and fraying. Procedure done: Left?shoulder?diagnostic and surgical arthroscopy with arthroscopic rotator cuff repair(large-massive) Left?shoulder?diagnostic and surgical arthroscopy biceps tenodesis Left?shoulder?diagnostic and surgical arthroscopy labral debridement Left?shoulder?diagnostic and surgical arthroscopy acromioclavicular joint resection Left?shoulder?diagnostic and surgical arthroscopy subacromial decompression (acromioplasty and bursectomy) Left shoulder diagnostic and surgical arthroscopy with subacromial balloon spacer Surgeon: Deejay Bailey DO Estimated blood loss: [10 ]mL IV fluids: See anesthesia record Implants: Arthrex speed bridge rotator cuff repair kit Arthrex bicep tenodesis loop and tack kit Arthrex scorpion and suture tape Pradip Inspace subacromial balloon spacer size (small) Complications: None Condition: stable Disposition: same day Brief History: Patient been seen and worked up in the outpatient setting for Left?shoulder?pain.? Pt had an MRI which showed findings below.? Patient's failed conservative treatment and has weakness.? We talked about treatment options far as nonoperative and operative intervention.? We talked about risk benefits complication alternatives surgical nonsurgical treatment options.? Understanding risk of surgery pt agrees to proceed with surgical intervention.? All questions have been answered at this time.? Patient elects proceed with surgery and consent obtained in preop for left shoulder diagnostic and surgical arthroscopy with subacromial decompression, AC joint resection, rotator cuff debridement versus repair, possible biceps tenotomy versus tenodesis, possible subacromial balloon spacer. MR/MR shoulder LT wo con* [id number] IMPRESSION: 1. Advanced arthritis AC joint with near complete loss of the subacromial space. 2. High-grade complete tear of the infraspinatus with retraction to the level of the glenohumeral joint. Edema with atrophy of the infraspinatus muscle belly. 3. Chronic high-grade thinning of the supraspinatus tendon. Small amount of supraspinatus tendon distally appears intact. 4. Subscapularis and teres minor appear intact. 5. Biceps tendon appears intact within the bicipital groove. Intra-articular biceps tendon appears intact. 6. Concave chronic impaction deformity along the anterior medial humeral head may be due to prior posterior dislocation. No evidence of edema. 7. No other acute findings. Procedure: Patient seen evaluated in the preoperative holding area.? Consent reviewed and signed with patient.? Once again reviewed patient's MRI results as well as? planned surgical intervention.? Correct extremity marked.? Patient seen evaluated by anesthesia department received regional anesthesia.? Once ready for surgery was taken back to the operative suite.? Patient then subsequently underwent anesthesia per the anesthesia department was transported onto the OR table.? Patient was then placed into a lateral decubitus position with a beanbag and was appropriately secured to the bed.? All bony prominences well-padded.? Patient then had the Left upper extremity was then prepped and draped in standard orthopedic fashion.? Patient received appropriate preoperative antibiotics.? Final timeout performed. The Left upper extremity was then held in hanging from traction utilizing sterile technique.? Next started with standard diagnostic and surgical arthroscopy with posterior portal position introduced arthroscope into the glenohumeral joint.? Visualized the glenohumeral joint I then introduced a spinal needle within the rotator cuff interval to confirm appropriate anterior portal placement.? Once this was confirmed I then made my small incision and then introduced my arthroscopic shaver into the glenohumeral joint.? After flushing the joint fluid, was clearly evident patient had biceps tendon tearing as well as Superior labral tear. Patient had appreciable unstable biceps anchor most pronounced in the superior labrum. Given there appears to be healthy intra-articular tendon plan was for an intra-articular biceps tenodesis at the superior portion as it enters the intertubercular groove. Thermal wand introduced into the rotator interval. I then release of the rotator interval to have appropriate visualization and the ability to perform biceps tenodesis. At this point I established a purple passport cannula which was introduced. Next I performed an Arthrex loop and tap biceps tenodesis. Passer was then made around the tendon luggage tag stitch around and then thru the tendon per arthrex protocol. I then utilized a thermal wand to release the biceps tendon at the anchor to perform with tenotomy. I then loaded with suture onto an Arthrex 4.75 swivel lock suture anchor. A punch was then placed in appropriate position at the entry point into the intertubercular groove just superior to the subscapularis tendon. Punch was then introduced to the appropriate depth. The suture loaded on the swivel lock was then advanced held under appropriate tension and shoulder lock anchor was then advanced and had excellent fixation. Excess suture was then cut biceps tenodesis was complete. I then utilized a thermal wand to seal the edges of the superior labrum. Next I evaluated the subscapularis tendon which was intact and no evidence of tear. ?Next there was significant labral tearing at biceps anchor and circumferential.? ? I then subsequently utilized a a arthroscopic shaver and thermal wand to perform a labral debridement.? This point time I then visualized the glenohumeral joint.? The glenohumeral joint was found to have grade 2? chondromalacia throughout.? Axillary pouch was free of loose bodies from viewing the posterior portal.? Next a visualized the rotator cuff superiorly and there was found to be a large to massive tear of supra and infraspinatus retracted to level of Glenohumeral joint. ?This completed my work within the glenohumeral joint all fluid was suctioned free of the joint.? ?Next I reintroduced the arthroscope posteriorly.? And went to the subacromial space.? I established my lateral working portal at the site of which my spinal needle was marking of the rotator cuff tear.? Thermal wand was then introduced laterally and then I subsequently performed extensive bursectomy of the subacromial space.? Patient had a large anterior bone spur.? At this point time I proceeded with my AC joint resection thermal wand was used and track to the anterior edge of the acromion and then tracked all the way to the AC joint.? Once identified the AC joint this was very arthritic in nature.? Thermal wand was placed anteriorly to establish appropriate plane for AC joint resection.? Once appropriate margins and anterior inferior and anterior capsule was released I then introduced arthroscopic shaver and a bur and performed AC joint resection of both the acromion to cope plane at the AC joint and a distal clavicle resection was then performed totaling 1 cm in size and was confirmed.? This completed my AC joint resection and I then introduced the arthroscopic shaver laterally while continuing to view posteriorly.? I then performed an acromioplasty to complete my subacromial decompression prior to addressing the rotator cuff tear.? Max at this point in time I then introduced the arthroscopic shaver laterally and evaluated the massive rotator cuff tear. At this point in time I utilized arthroscopic shaver and thermal wand to perform standard releases around the rotator cuff tear I then utilized a soft tissue grasper and then evaluated and patient fortunately did have enough tendon excursion to obtain a rotator cuff repair on the medial margin of the rotator cuff footprint. This did have to medialized the footprint some to get this over however this was able to be repaired. At this point in time I then selected utilize Arthrex double row speed bridge kit. This came with 2 swivel lock anchors medially and laterally. At this point in time and then introduced a shaver to debride the rotator cuff footprint and decorticate the footprint in preparation for repair, As well as utilized a ring curette to debride off of any fibrous tissue. This had good healthy bleeding bone in preparation. At this point in time I satisfied with preparation and then started with placement of the medial row anchors. Utilized a spinal needle to get an accessory portal made to place the medial row anchors once I had the satisfactory man's angle perpendicular to the humeral head I then subsequently made a small incision and utilized a blunt probe and then did 2 punches both for the medial row anchors both an anterior and posterior user then punched and loaded 4.75 swivel locks onto suture tapes and then he subsequently advanced and had excellent fixation. At this point in time I then with the assistance and help of my medical laboratory assistant I then subsequently placed a blue passport cannula laterally and then began the rotator cuff repair. I then subsequently passed all 4 sequentially of the suture tapes in standard spaced out fashion of the anterior posterior and these are satisfactory spaced and had excellent purchase within the tendon once I had these all passed I thenGrabbed the suture that were passed on the 1 and 3 position and then these were loaded into a 4.75 anchor which unfortunately did not have significant purchase and as a result I subsequently utilized a 6.5 bio composite Arthrex swivel lock suture these were loaded with the suture I then subsequently with my medical laboratory assistant utilized a punch and then while maintaining satisfactory tension to getting appropriate I then subsequently advanced a 6 .5 swivel lock which at this point in time had good purchase. Once this secured the anterior sutures I then subsequently grabbed the second and fourth and loaded for a posterior and lateral anchor I subsequently found my satisfactory position on the lateral aspect and then subsequently punched held satisfactory tension on the suture tapes to have excellent rotator cuff tendon excursion over to the footprint and then subsequently advanced a 4.75 swivel lock and had excellent fixation. At this point I am satisfied with these sutures being passed I then utilized an arthroscopic suture cutter and removed all excess suture. I subsequently evaluated the rotator cuff repair.? Repair was found to be satisfactory?shoulder?was taken through range of motion and the repair moved as a unit with no evidence of loss of fixation. ?I then switched the arthroscope to the lateral portal to confirm this.? I took the?shoulder?through range of motion and the rotator cuff repair was stable and moved as a unit.At this point in time it was deemed that I did have to medialize the rotator cuff footprint along the articular margin just in order to get satisfactory tendon excursion to come over and attached on the footprint. Given I the large to massive miss of this rotator cuff repair and its original retraction and pulling of tissue just to get this over and as well as given her history where she has had failure on the right side I feel as though in order to help protect the massive rotator cuff repair as well as to aid in some compression from the cuff onto bone interface isolate the patient as she would be a good candidate given she is over the age of 65 for a subacromial balloon spacer. 1 I feel this would be good backup fixation and especially given this was a large to massive rotator cuff tear in a 63-year-old female that required some overtensioning just to get the repair over. As a result I selected for a subacromial balloon spacer this would also add in some compression on the rotator cuff onto the bony interface as well as this would act as a cushion for the rotator cuff during its repair and recovery as well as in the unlikely scenario of a possible repair she would already potentially have this in place as her final bowel prior to being any more permanent procedures like a total shoulder reverse replacement. As result I proceeded with a left subacromial balloon spacer. As a result I utilized [employer] in space?subacromial?balloon?system I subsequently made an appropriate measurement selected appropriate small sized?balloon?I then opened up the lateral portal slightly to accommodate for the?subacromial?balloon?inserting device this was placed into appropriate position to its black line and then the instrument panel assembler sheath was subsequently removed and the?subacromial?balloon?was exposed I then subsequently filled this up to the appropriate fluid volume per the size and per [employer]?subacromial?balloon?and space protocol this was subsequently insufflated had excellent positioning and at this point in time I utilized the release on the device and the guide was then subsequently removed and?subacromial?balloon?spacer remained in excellent position shoulder was taken through range of motion and?balloon?had excellent positioning as well as protection of the exposed humeral head superiorly underneath the acromion.? This completed the procedure. All fluid was suctioned from the?shoulder.? All instruments were removed.? The lateral incision was then closed with nylon stitches.? As well as the portal sites closed with portal nylon stitches.? Xeroform 4 x 4's ABD and tape was then applied to the Left?shoulder?and was placed into a?shoulder?abduction pillow sling for rotator cuff repair.? Patient was then awakened from anesthesia and then taken back to PACU in stable condition.? Patient tolerated procedure without any issues. Disposition: Patient taken back in stable condition recovering well.? Dressings on in place clean dry and intact.? Will be nonweightbearing to the Left upper extremity.? Follow rotator cuff repair protocol.? Patient to follow-up with me in the office in 2 weeks.? Patient will receive appropriate discharge instruction as well as pain medication postoperatively.? All questions answered.? We will contact the office for any questions or concerns.
--- NOTE | 2024-10-03 10:14 | PM.PACU ---
PACU note Narrative: Patient is a 64-year-old female just underwent a left shoulder diagnostic surgical arthroscopy. Patient transferred to PACU in stable condition. Pain is well controlled. shoulder Dressing on , dry and in place. Patient's operative arm is in a shoulder immobilizer. Patient is awake and alert and able to respond to my questions accordingly. Patient's fingers are warm with good perfusion. Normal cap refill under 2 seconds. Unable to assess motor sensation due to residual block. Exam: awake Disposition: discharged
--- NOTE | 2024-10-03 10:30 | PC.NURSE ---
pt to PACU at 10:06, blood pressure and temp difficult to obtain, pt temp showing under 96 temporal, quincy camara applied to pt. notified Dr. Heredia, will continue with quincy camara and warming pt. First blood pressure reading in pacu was 117/70 at 10:17, unable to obtained blood pressure from 10:06-10:17 on pt.
--- NOTE | 2024-10-03 12:35 | ANE.PACU2 ---
Inpatient post-anesthesia follow up: Airway intact: Yes Vital signs: Temperature 98.2 F Pulse Rate 62 Respiratory Rate 16 Blood Pressure 91/55 Pulse Oximetry 95 Oxygen Delivery Me thod Room Air Oxygen Flow Rate 10 Fraction of Inspir ed Oxygen Hydration adequate: Yes Nausea and vomiting: Yes Pain level: 1 Mental status: Baseline Additional Comments: patient required active rewarming w/ forced air warmer, to reach normothermia
== END 2024-10-03 12:36 | disposition home or self-care (01) ==
PROVIDERS: PCP Family Medicine; Visit Provider Student in an Organized Health Care Education/Training Program
PROC: (CPT 29805; principal; 2024-10-03 08:00)
PROC: (CPT 29826; 2024-10-03 08:00)
PROC: 0RSH0ZZ Reposition Left Acromioclavicular Joint, Open Approach (ICD-10-PCS; CPT 29827; 2024-10-03 08:00)
PROC: 0LQ24ZZ Repair Left Shoulder Tendon, Percutaneous Endoscopic Approach (ICD-10-PCS; CPT 29827; 2024-10-03 08:00)
PROC: (CPT 23405; 2024-10-03 08:00)
PROC: (CPT 29999; 2024-10-03 08:00)
DX: M19.012 Primary osteoarthritis, left shoulder (principal); M75.42 Impingement syndrome of left shoulder; M75.52 Bursitis of left shoulder; M75.102 Unspecified rotator cuff tear or rupture of left shoulder, not specified as traumatic; S46.212A Strain of muscle, fascia and tendon of other parts of biceps, left arm, initial encounter; E03.9 Hypothyroidism, unspecified; M75.22 Bicipital tendinitis, left shoulder; Z79.899 Other long term (current) drug therapy; Z79.890 Hormone replacement therapy
CPT/HCPCS: 29827; 29828; 29826; 29999; C1713; C1889; J0171; J0690; J1100; J1885; J2250; J2405; J2704; J2710; J2795; J3010; J3490; J7030

== ENCOUNTER → 2024-10-18 14:10 | Outpatient (BNVA) | payer MEDICARE, OTHER, SELFPAY | PROVIDERS: PCP Family Medicine; Visit Provider Physician Assistant | DX: Z98.890 Other specified postprocedural states (principal) | CPT/HCPCS: 99024 ==

== ENCOUNTER → 2024-10-25 15:56 | Outpatient (BNVA) | payer MEDICARE, OTHER, SELFPAY | PROVIDERS: PCP Family Medicine; Visit Provider Family Medicine | DX: E03.9 Hypothyroidism, unspecified (principal) | CPT/HCPCS: 80053; 84439; 84443; 85025 ==

== ENCOUNTER → 2024-11-27 14:11 | Outpatient (BNVA) | payer MEDICARE, OTHER, SELFPAY | PROVIDERS: PCP Family Medicine; Visit Provider Student in an Organized Health Care Education/Training Program | DX: Z98.890 Other specified postprocedural states (principal) | CPT/HCPCS: 99213 ==

== ENCOUNTER 2024-12-06 12:14 | Outpatient (RCR) | payer MEDICARE, OTHER, SELFPAY | END 2024-12-25 23:59 | disposition home or self-care (01) | LOC: SPT 12:14 | PROVIDERS: Visit Provider Student in an Organized Health Care Education/Training Program | DX: Z98.890 Other specified postprocedural states (principal) | CPT/HCPCS: 97110; 97161 ==

== ENCOUNTER → 2024-12-16 13:25 | Outpatient (BNVA) | payer MEDICARE, OTHER, SELFPAY | PROVIDERS: Visit Provider Nurse Practitioner Family | DX: L85.3 Xerosis cutis (principal); L82.1 Other seborrheic keratosis; D22.4 Melanocytic nevi of scalp and neck; L81.4 Other melanin hyperpigmentation; L57.8 Other skin changes due to chronic exposure to nonionizing radiation; X32.XXXA Exposure to sunlight, initial encounter; W89.1XXA Exposure to tanning bed, initial encounter; Z12.83 Encounter for screening for malignant neoplasm of skin; X58.XXXA Exposure to other specified factors, initial encounter | CPT/HCPCS: 99203 ==

== ENCOUNTER → 2024-12-24 08:58 | Outpatient (BNVA) | payer MEDICARE, OTHER, SELFPAY | PROVIDERS: PCP Family Medicine; Visit Provider Family Medicine | DX: G25.81 Restless legs syndrome (principal); D50.9 Iron deficiency anemia, unspecified; E53.8 Deficiency of other specified B group vitamins | CPT/HCPCS: 82607; 82728; 85025 ==

== ENCOUNTER 2024-12-26 05:00 | Outpatient (RCR) | payer MEDICARE, OTHER, SELFPAY | END 2025-01-25 23:59 | disposition home or self-care (01) | LOC: SPT 05:00 | PROVIDERS: PCP Family Medicine; Visit Provider Student in an Organized Health Care Education/Training Program | DX: Z98.890 Other specified postprocedural states (principal) | CPT/HCPCS: 97110; G0283 ==

== ENCOUNTER → 2025-01-22 12:55 | Outpatient (BNVA) | payer MEDICARE, OTHER, SELFPAY | PROVIDERS: PCP Family Medicine; Visit Provider Student in an Organized Health Care Education/Training Program | DX: Z98.890 Other specified postprocedural states (principal) | CPT/HCPCS: 99213 ==

== ENCOUNTER 2025-01-26 05:00 | Outpatient (RCR) | payer MEDICARE, OTHER, SELFPAY | END 2025-02-24 23:59 | disposition home or self-care (01) | LOC: SPT 05:00 | PROVIDERS: PCP Family Medicine; Visit Provider Student in an Organized Health Care Education/Training Program | DX: Z98.890 Other specified postprocedural states (principal) | CPT/HCPCS: 97110 ==

== ENCOUNTER 2025-02-11 15:06 | Outpatient (CLI) | payer MEDICARE, SELFPAY ==
--- NOTE | 2025-02-11 15:30 | XR_ITS ---
WS: [id number] SCREENING DEXA SCAN [employer] CLINICAL INFORMATION: postmenopausal COMPARISON: None. FINDINGS: The L1-L4 bone mineral density measures 0.998 g/cm2. This corresponds to a T score score of -1.5 and Z score of 0.6. Left femoral neck bone mineral density measures 0.810 g/cm2. This corresponds to a T score of -1.6 and Z score of 0.1. Right femoral neck bone mineral density measures 0.776 g/cm2. This corresponds to a T score -1.8of and Z score of -0.2. Mean femoral neck bone mineral density measures 0.793 g/cm2. This corresponds to a T score of -1.7 and Z score of -0.1. XR/XR DEXA axial skeleton* [id number] IMPRESSION: Osteopenia lumbar spine. Osteopenia femoral necks. Patient's FRAX calculated 10 year probability for major osteoporotic fracture i s 8.2% and osteoporotic hip fracture is 1.0%.
== END 2025-02-11 15:07 | disposition home or self-care (01) ==
LOC: RAD 15:10
PROVIDERS: PCP Family Medicine; Visit Provider Family Medicine
DX: Z13.820 Encounter for screening for osteoporosis (principal); M85.88 Other specified disorders of bone density and structure, other site; M85.852 Other specified disorders of bone density and structure, left thigh; M85.851 Other specified disorders of bone density and structure, right thigh; Z78.0 Asymptomatic menopausal state
CPT/HCPCS: 77080

== ENCOUNTER 2025-02-25 05:00 | Outpatient (RCR) | payer MEDICARE, OTHER, SELFPAY | END 2025-03-27 23:59 | disposition home or self-care (01) | LOC: SPT 05:00 | PROVIDERS: PCP Family Medicine; Visit Provider Student in an Organized Health Care Education/Training Program | DX: Z98.890 Other specified postprocedural states (principal) | CPT/HCPCS: 97110 ==

== ENCOUNTER → 2025-04-29 11:02 | Outpatient (BNVA) | payer MEDICARE, OTHER, SELFPAY | PROVIDERS: PCP Family Medicine; Visit Provider Student in an Organized Health Care Education/Training Program | DX: Z98.890 Other specified postprocedural states (principal) | CPT/HCPCS: 99213 ==

== ENCOUNTER → 2025-05-29 12:04 | Outpatient (BNVA) | payer MEDICARE, OTHER, SELFPAY | PROVIDERS: PCP Family Medicine; Visit Provider Family Medicine | DX: Z13.6 Encounter for screening for cardiovascular disorders (principal); G25.81 Restless legs syndrome; E03.9 Hypothyroidism, unspecified | CPT/HCPCS: 80053; 84439; 84443; 85025 ==

== ENCOUNTER → 2025-07-07 12:38 | Outpatient (BNVA) | payer MEDICARE, OTHER, SELFPAY | PROVIDERS: PCP Family Medicine; Visit Provider Family Medicine | DX: E03.9 Hypothyroidism, unspecified (principal) | CPT/HCPCS: 84439; 84443 ==

== ENCOUNTER 2025-07-25 10:07 | Outpatient (CLI) | payer MEDICARE, OTHER, SELFPAY ==
--- NOTE | 2025-07-25 | MM_ITS ---
WS: [id number] BILATERAL 3D TOMOSYNTHESIS DIGITAL SCREENING MAMMOGRAPHY WITH CAD CLINICAL INFORMATION: ANNUAL SCREENING HISTORY: Screening mammogram. No current complaints. COMPARISON: 2023 TECHNIQUE: Bilateral CC and MLO views. FINDINGS: Scattered fibroglandular densities bilaterally. No suspicious focal mass, asymmetry, calcifications, or architectural distortion. No evidence of malignancy. Benign calcification RIGHT breast MM/MM scr BI tomosynthesis [id number] IMPRESSION: DENSITY: There are scattered areas of fibroglandular density. BI-RADS: 2 - Benign. FOLLOW UP: 1 Year Follow-up Recommend return to annual screening mammography.
== END 2025-07-25 10:08 | disposition home or self-care (01) ==
LOC: RAD 10:08
PROVIDERS: PCP Family Medicine; Visit Provider Family Medicine
DX: Z12.31 Encounter for screening mammogram for malignant neoplasm of breast (principal); R92.323 Mammographic fibroglandular density, bilateral breasts; R92.1 Mammographic calcification found on diagnostic imaging of breast
CPT/HCPCS: 77063; 77067